=== PATIENT | male | born 1990 | race American Indian/Alaskan Native ===

== ENCOUNTER 2017-09-21 18:26 | Emergency (ER) | payer SELFPAY ==
[2017-09-21] MEDS ORDERED: TORADOL IM ONE (20:14)
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
[2017-09-21 22:44] VITALS: BP 134/78
== END 2017-09-21 22:30 | disposition home or self-care (01) ==
LOC: ED 18:26
DX: J32.1 Chronic frontal sinusitis (principal); J32.2 Chronic ethmoidal sinusitis; J32.3 Chronic sphenoidal sinusitis
CPT/HCPCS: 70450; 71046; 96372; 99284; J1885